=== PATIENT | male | born 1990 | race Asian ===

== ENCOUNTER 2022-02-05 20:26 | Emergency (ER) | payer BC, MEDICAID ==
[~2022-02-05] VITALS: Ht 172.7 cm; Wt 88.6 kg
[~2022-02-05 20:26] MED LIST: NO HOME MEDS
[2022-02-05] MEDS ORDERED: LEVO50TA8 PO (23:29)
[2022-02-06] MEDS ORDERED: LIDOcaine 1% W/epiNEPHrine 1:100,000 20ml vial IJ ONE
[2022-02-06 00:46] VITALS: BP 145/81
== END 2022-02-06 00:49 | disposition home or self-care (01) ==
LOC: ER 20:26
DX: S01.112A Laceration without foreign body of left eyelid and periocular area, initial encounter (principal); E03.9 Hypothyroidism, unspecified; Z79.899 Other long term (current) drug therapy; W22.8XXA Striking against or struck by other objects, initial encounter; Y93.89 Activity, other specified; Y92.89 Other specified places as the place of occurrence of the external cause; Y99.8 Other external cause status
CPT/HCPCS: 12011; 99282; A6449

== ENCOUNTER 2022-04-15 11:07 | Emergency (ER) | payer BC ==
[~2022-04-15] VITALS: Ht 180.3 cm; Wt 86.4 kg
[~2022-04-15 11:07] MED LIST changes: +LEVO50TA8 PO; -NO HOME MEDS
[2022-04-15 11:20] VITALS: BP 14/83
== END 2022-04-15 14:34 | disposition home or self-care (01) ==
LOC: ER 11:07
DX: S52.122A Displaced fracture of head of left radius, initial encounter for closed fracture (principal); E03.9 Hypothyroidism, unspecified; W18.39XA Other fall on same level, initial encounter; Y93.89 Activity, other specified; Y92.89 Other specified places as the place of occurrence of the external cause; Y99.8 Other external cause status
CPT/HCPCS: 29105; 73080; 99283; A4565; A6449